=== PATIENT | male | born 1985 | race Caucasian/White ===

== ENCOUNTER 2016-11-07 20:27 | Emergency (ER) | payer SELFPAY ==
[~2016-11-07] VITALS: Ht 172.7 cm; Wt 87.6 kg
[2016-11-07 20:34] VITALS: TEMP 36.7; Ht 172.7 cm; Wt 87.6 kg
[2016-11-07] MEDS ORDERED: MECL1TAB42 PO (21:11)
[2016-11-07] MEDS ORDERED: MECLIZINE HCL 25 MG TAB PO STA (21:13)
--- NOTE | 2016-11-07 21:13 | EMERGENCY ROOM VISIT NOTE ---
History Report prepared by Skip: Monica Chappell Under the Supervision of: Dr. Michael Murphy D.O. First contact with patient: 20:49 Chief Complaint: DIZZY Stated Complaint: DIZZINESS WHEN I TURN MY HEAD TO QUICK Nursing Triage Summary: pt ambulated to triage reports I have a problem with my right ear and last week started to notice dizziness with sudden movement . denies loc or falls was given a medication and this fixed the dizziness History of Present Illness The patient is a 31 year old male who presents to the Emergency Room with complaints of persistent dizziness that began several days ago. He currently rates his discomfort as a 5/10 in severity. The patient states that he has noticed a pain behind his ears over the last few days that has been worsening. He states that he has noticed that he has been becoming increasingly dizzy, noting that he feels off balance. The patient states that he had this happen in the past, reporting that in November 2014 his symptoms were all attributed to an inner ear infection. He states that he was given a medication for the dizziness that helped to alleviate his symptoms. The patient states that today his symptoms are worsened with quick head movements. He denies any recent cough , cold, fever, runny nose, or nausea. The patient states that he has noticed a headache. Source of History: patient Onset: several days ago Position: other (global) Symptom Intensity: 5/10 Quality: other (dizziness) Timing: other (persistent) Associated Symptoms: + headache, No fevers, No cough, No nausea Note: Associated Symptoms: pain behind ears, feeling off balance. Review of Systems See HPI for pertinent positives & negatives. A total of 10 systems reviewed and were otherwise negative. Past Medical & Surgical No active medical problems. Family History No pertinent family history stated Social History Smoking Status: Never Smoker Marital Status: single Occupation Status: employed Current/Historical Medications Scheduled PRN Meclizine Hcl (Meclizine Hcl), 1 TAB PO TID PRN for Dizziness or Vertigo Allergies Uncoded Allergies: NKDA (Allergy, Unknown, 02/11/05) Physical Exam Vital Signs Date Time Temp Pulse Resp B/P (MAP) Pulse Ox O2 Delivery O2 Flow Rate FiO2 11/07/16 20:34 36.7 81 18 130/86 98 Room Air Physical Exam VITAL SIGNS: were reviewed as above. GENERAL:Non-toxic in appearance. SKIN: Warm dry and pink. HEAD: Normocephalic and atraumatic. OROPHARYNX: Is clear and moist NECK: Supple without lymphadenopathy or meningismus. LUNGS: clear. HEART: Regular rate and rhythm. ABDOMEN: Soft and nontender. EXTREMITIES: Warm and well perfused. NEUROLOGICALLY: Awake alert and oriented without focal deficit. Cranial nerves 2 -12 are intact. There is no pronator drift. Cerebellar testing is within normal limits. There is no nystagmus. There is no facial droop. Speech is clear. Vision is grossly normal. MUSCULOSKELETAL: Good muscle tone. No evidence of trauma. Medical Decision & Procedures ED Course 2049: Previous medical records were reviewed. The patient was evaluated in room C6. A complete history and physical examination was performed. 2057: I discussed all the physical exam findings with him and I discussed the treatment plan. He verbalized complete understanding and agreement. He is ready to go home. 2112: Ordered Antivert Tab 25 mg PO. 2114: Ordered Meclizine HCl 1 homepack PO. Medical Decision Differentials include: Acute coronary syndrome, myocardial infarction, CVA, TIA , anemia, infection, pneumonia, UTI, pyelonephritis, poor nutrition, dehydration , electrolyte disturbance, and hypoglycemia. Blood pressure Screening: Patient was found to have normal blood pressure on screening and does not require follow-up. Medication Reconciliation: I attest that I have personally reviewed the patient' s current medication list. This is a 31-year-old male who presents to the ED with a chief complaint of dizziness. The patient states that his symptoms started a couple of days ago. He states that his symptoms are worse with moving his head too quickly. He also reported a little pain occasionally behind his right ear. He reports similar symptoms in the past which he has been prescribed meclizine and that seemed to help. He also reported seeing a physician previously who felt that he might have an abnormality with the bones of the inner ear related to a previous injury related to a horse kicking his head. The patient denies any focal neurologic deficits. Denies recent illness, fevers, nausea or vomiting. The patient's physical exam and neurologic exam are completely normal. His vital signs are normal. After discussing CT scan options and medications, the patient desires to try meclizine and declined CT scan of the head at this time or other workup. He will return if his symptoms worsen or if he develops any new or concerning symptoms. 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 Impression Primary Impression: Dizziness Scribe Attestation The scribe's documentation has been prepared under my direction and personally reviewed by me in its entirety. I confirm that the note above accurately reflects all work, treatment, procedures, and medical decision making performed by me. Departure Information Dispostion Home / Self-Care Prescriptions Meclizine Hcl (MECLIZINE HCL) 25 Mg Tab 1 TAB PO TID Y for Dizziness or Vertigo for 10 Days, #30 TAB Prov: Michael Murphy D.O. 11/07/16 Referrals No Doctor, Assigned (PCP) Forms HOME CARE DOCUMENTATION FORM, IMPORTANT VISIT INFORMATION Patient Instructions Dizziness Vertigo Balance Safety, Dizziness Vertigo Inner Ear, My [facility] Additional Instructions Meclizine as prescribed for your symptoms. Return to the emergency department if symptoms worsen or you develop new symptoms. Anticipate improvement over the next week. If symptoms persist, see her doctor or return for evaluation. Use caution with doing construction while symptomatic or if drowsiness is caused by the meclizine.
[2016-11-07] MEDS ORDERED: MECLIZINE HCL 25MG HOME PACK PO ONE (21:15)
[2016-11-07 21:29] VITALS: BP 127/67; PULSE 78; O2SAT 97
== END 2016-11-07 21:37 | disposition home or self-care (01) ==
LOC: C.EDB 20:28 → C.EDC 21:37
DX: R42 Dizziness and giddiness (principal)